=== PATIENT | male | born 1970 | race African-American/Black ===

== ENCOUNTER 2017-06-16 13:12 | Emergency (ER) | payer MEDICARE, MEDICAID ==
[~2017-06-16] VITALS: Ht 177.8 cm; Wt 100.0 kg
[2017-06-16] MEDS ORDERED: SODIUM CHLORIDE 0.9% 1,000 ML IV ONE (14:05)
[2017-06-16] MEDS ORDERED: ZIPRASIDONE MESYLATE 20MG/VIAL IM ONE (14:15)
[2017-06-16] MEDS ORDERED: LORAZEPAM 2MG/ML CPJ IM ONE ×2 (14:15→17:45)
[2017-06-16 15:16] LABS: BASOPHILS % 0.5 % (0.0-2.0); EOSINOPHILS % 0.6 % (0.0-5.0); HEMATOCRIT. 38.6 % (42.0-52.0); HEMOGLOBIN. 13.4 g/dL (14.0-18.0); LYMPHOCYTES % 31.3 % (20.0-50.0); MEAN CORPUSCULAR HEMOGLOBIN 33.2 pg (28.0-32.0); MONOCYTES % 7.4 % (2.0-8.0); NEUTROPHILS % 60.2 % (40.0-76.0); PLATELET 188 x1000/uL (130-400); RED BLOOD CELL COUNT 4.02 mill/uL (4.7-6.1); RED CELL DISTRIBUTION WIDTH 12.8 % (11.6-14.6)
[2017-06-16 15:22] LABS: AMMONIA 32 uMol/L (<32)
[2017-06-16 15:23] LABS: CHLORIDE 114 mEq/L (98-107); ETHANOL BLOOD < 10 mg/dL
[2017-06-16 15:29] LABS: CREATINE KINASE 532 IU/L (39-308)
[2017-06-16 16:25] LABS: CLARITY URINE CLEAR (CLEAR); COLOR URINE YELLOW (YELLOW); KETONES URINE NEGATIVE (NEGATIVE); LEUKOCYTE ESTERASE URINE NEGATIVE (NEGATIVE); NITRITE URINE NEGATIVE (NEGATIVE); OCCULT BLOOD URINE NEGATIVE (NEGATIVE); PROTEIN URINE NEGATIVE (NEGATIVE); SPECIFIC GRAVITY URINE 1.014 (1.005-1.030); UROBILINOGEN URINE 0.2 E.U./dL (0.2-1.0)
[2017-06-16 16:49] LABS: *AMPHETAMINES SCREEN URINE NEGATIVE (NEGATIVE); *BARBITURATES SCREEN URINE NEGATIVE (NEGATIVE); *BENZODIAZEPINES SCREEN URINE NEGATIVE (NEGATIVE); *COCAINE SCREEN URINE NEGATIVE (NEGATIVE); OPIATES URINE SCREEN NEGATIVE (NEGATIVE)
[2017-06-16 16:50] LABS: CANNABINOID URINE SCREEN NEGATIVE (NEGATIVE); METHADONE URINE SCREEN NEGATIVE (NEGATIVE); PHENCYCLIDINE URINE SCREEN NEGATIVE (NEGATIVE)
[2017-06-16] MEDS ORDERED: HALOPERIDOL LACTATE 5MG/ML VIAL IM PRN (23:15)
[2017-06-16] MEDS ORDERED: LORAZEPAM 1MG TABLET PO ONE (23:15)
[2017-06-17] MEDS ORDERED: QUETIAPINE FUMARATE 100MG TABLET PO SCH (09:00)
[2017-06-17] MEDS ORDERED: DIVALPROEX SODIUM 500MG DR TABLET PO SCH (09:00)
[2017-06-17 16:49] VITALS: BP 134/74
== END 2017-06-17 17:29 ==
LOC: ER 13:12
DX: F23 Brief psychotic disorder (principal); G93.49 Other encephalopathy; F91.8 Other conduct disorders; F31.9 Bipolar disorder, unspecified; Z78.1 Physical restraint status
CPT/HCPCS: 36415; 80053; 80305; 80307; 80329; 81003; 82140; 82550; 83690; 84443; 84484; 85025; 93005; 96360; 96361; 96372; 99285; G0482; J1630; J2060; J3486; J7030